=== PATIENT | male | born 1965 | race Caucasian/White ===

== ENCOUNTER 2025-06-14 01:20 | Emergency (ER) | payer MEDICARE ==
[~2025-06-14] VITALS: Ht 172.7 cm; Wt 66.7 kg
[2025-06-14 01:29] VITALS: BP 149/92
[2025-06-14] MEDS ORDERED: HYDROMORPHONE 1 MG/1 ML DISP.SYRIN ONE (02:04)
[2025-06-14] MEDS: HYDROMORPHONE 1 MG/1 ML DISP.SYRIN IM ONE (02:07)
[2025-06-14 02:20] LABS: PLATELET COUNT (AUTO) 303 K/uL (152-348); RED BLOOD CELL COUNT(AUTO) 5.29 MIL/uL (4.06-5.63); RED CELL DISTRIBUTION WIDTH 14.1 % (12.1-16.2); WHITE BLOOD COUNT (AUTO) 11.9 K/uL (3.6-10.2)
[2025-06-14 02:26] LABS: *BILIRUBIN,URIN NEGATIVE (NEGATIVE); *BLOOD, URINE NEGATIVE (NEGATIVE); *CLARITY,URINE CLEAR (CLEAR); *COLOR,URINE YELLOW (YELLOW); *KETONES,URINE NEGATIVE (NEGATIVE); *PROTEIN,URINE NEGATIVE (NEGATIVE); *UROBILINOGEN,URINE 0.2 E.U./dl (NORMAL); LEUKOCYTE ESTERASE ,URINE NEGATIVE (NEGATIVE); NITRITE, URINE NEGATIVE (NEGATIVE); UGLUCOSE NEGATIVE (NEGATIVE)
[2025-06-14 02:28] LABS: CREATININE 1.0 mg/dL (0.6-1.3); SODIUM SERUM 139.0 mmol/L (136-145); UREA NITROGEN, BLOOD 12.0 mg/dL (7-18)
[2025-06-14 02:34] LABS: ASPARTATE AMINOTRANSFERASE 22.0 U/L (15-37); TOTAL PROTEIN, SERUM 7.4 g/dL (6.4-8.2)
[2025-06-14] MEDS ORDERED: OXYC10TA49 PO (03:10)
[2025-06-14] MEDS ORDERED: OXYCODONE HCL 5 MG TABLET ONE (03:15)
[2025-06-14] MEDS: OXYCODONE HCL 5 MG TABLET PO ONE (03:19)
[2025-06-14 03:23] VITALS: BP 131/84; O2SAT 97
== END 2025-06-14 03:23 | disposition home or self-care (01) ==
LOC: ER 01:31
DX: R10.9 Unspecified abdominal pain (principal); F11.20 Opioid dependence, uncomplicated; F12.90 Cannabis use, unspecified, uncomplicated; F17.210 Nicotine dependence, cigarettes, uncomplicated; G89.29 Other chronic pain; J44.9 Chronic obstructive pulmonary disease, unspecified; K50.90 Crohn's disease, unspecified, without complications
CPT/HCPCS: 99283; 80076; 80048; 81003; 83690; 85025; 86140; 36415; 96372; J1171; A4606; A4663

== ENCOUNTER 2025-06-19 08:39 | Emergency (ER) | payer MEDICARE ==
[~2025-06-19] VITALS: Ht 172.7 cm; Wt 67.1 kg
[~2025-06-19 08:39] MED LIST: OXYC10TA49 PO
[2025-06-19 08:52] VITALS: BP 131/64
[2025-06-19] MEDS ORDERED: FLUO20CA38 PO (09:34)
[2025-06-19] MEDS ORDERED: OMEP20CA15 PO (09:34)
[2025-06-19] MEDS ORDERED: LISI40TA20 PO (09:34)
[2025-06-19] MEDS ORDERED: HYDR4TAB4 PO (10:08)
[2025-06-19] MEDS ORDERED: CYANOCOBALAMIN 1000 MCG/ML VIAL ONE (10:19)
[2025-06-19] MEDS ORDERED: HYDROMORPHONE 1 MG/1 ML DISP.SYRIN ONE (10:19)
[2025-06-19] MEDS: CYANOCOBALAMIN 1000 MCG/ML VIAL IM ONE (10:27)
[2025-06-19] MEDS: HYDROMORPHONE 1 MG/1 ML DISP.SYRIN IM ONE (10:32)
[2025-06-19 10:58] VITALS: BP 131/64; TEMP 98.1; O2SAT 98
== END 2025-06-19 10:45 | disposition home or self-care (01) ==
LOC: ER 08:39
DX: K50.90 Crohn's disease, unspecified, without complications (principal); G89.29 Other chronic pain; F11.20 Opioid dependence, uncomplicated; F17.210 Nicotine dependence, cigarettes, uncomplicated; G47.30 Sleep apnea, unspecified; J44.9 Chronic obstructive pulmonary disease, unspecified; Z79.899 Other long term (current) drug therapy
CPT/HCPCS: 99284; 96372 ×2; J3420; J1171; A4606; A4663